=== PATIENT | male | born 1955 | race Caucasian/White ===

== ENCOUNTER 2021-01-25 16:20 | Observation (INO) | payer OTHER ==
--- NOTE | ~2021-01-25 | H ---
[address] [address] HISTORY AND PHYSICAL Name: LICO FOUNTAIN RUSSELL [place] Room: [address] [place] Rose#: [id number] Admission: 01/25/21 Attend Phys: [facility] Discharge: Date of : 57 Report #: [id number] THIS REPORT FOR: cc: FAM - No family physician/PCP FAM - No family physician/PCP [facility],Medical Records Staff ~ [facility]. For History and Physical, please refer to the acute admission. By: 03Medical Records Staff WIL /CINDY
--- NOTE | ~2021-01-25 | OP ---
[facility] [address] [place] [address] OPERATIVE REPORT Name: LICO FOUNTAIN RUSSELL [place] Room: [address] [place] Rose#: [id number] Admission: 01/25/21 Attend Phys: [facility] Discharge: 01/27/21 Date of : 57 Report #: [id number] THIS REPORT FOR: cc: FAM - No family physician/PCP FAM - No family physician/PCP [facility],Medical Records Staff ~ [facility]. By: 1338Medical Records Staff WIL /CINDY
[2021-01-25 17:57] LABS: BE -1.9 mmol/L (-2 to +3); PCO2 42.6 mmHg (35.0-45.0); PO2 90.6 mmHg (75.0-100.0); pH 7.359 (7.340-7.450)
[2021-01-25 18:33] LABS: ABSOLUTE LYMPHOCYTES 0.2 thou/uL (0.8-5.3); ABSOLUTE MONOCYTES 1.1 thou/uL (0.0-1.2); ABSOLUTE NEUTROPHILS 16.7 thou/uL (1.6-8.1); BASOPHILS 0.2 %; HEMATOCRIT 28.1 % (42.0-52.0); HEMOGLOBIN 9.1 gm/dL (14.0-18.0); LYMPHOCYTES 1.1 %; MCH 28.4 pg (26.0-34.0); MCHC 32.3 g/dL (28.0-37.0); MCV 87.9 fL (80.0-100.0); MONOCYTES 6.3 %; MPV 9.6 fl. (7.2-11.1); NUCLEATED RBCS 0 /100WBC; PLATELET COUNT* 142 thou/uL (150-400); POLYS 92.4 %; RBC 3.19 mil/uL (4.50-6.00); WBC 18.1 thou/uL (4.0-11.0)
[2021-01-25 18:43] LABS: CALCIUM 6.8 mg/dL (8.5-10.1); CREATININE 5.4 mg/dL (0.6-1.3); POTASSIUM 5.4 mmol/L (3.5-5.1)
[2021-01-25 18:54] LABS: FIBRINOGEN > 850 mg/dL (200-340)
[2021-01-25 18:59] LABS: MAGNESIUM 2.2 mg/dL (1.8-2.4)
[2021-01-25 19:43] LABS: ALBUMIN 1.3 g/dL (3.4-5.0); DIRECT BILIRUBIN 0.3 mg/dL (<0.1-0.3); TOTAL BILIRUBIN 0.7 mg/dL (<0.1-1.0); TOTAL PROTEIN 5.4 g/dL (6.4-8.2)
[2021-01-26 00:10] LABS: ABSOLUTE BASOPHILS 0.1 thou/uL (0.0-0.2); ABSOLUTE LYMPHOCYTES 0.2 thou/uL (0.8-5.3); ABSOLUTE MONOCYTES 0.6 thou/uL (0.0-1.2); ABSOLUTE NEUTROPHILS 16.2 thou/uL (1.6-8.1); BASOPHILS 0.3 %; HEMATOCRIT 27.6 % (42.0-52.0); HEMOGLOBIN 8.9 gm/dL (14.0-18.0); LYMPHOCYTES 1.3 %; MCH 28.3 pg (26.0-34.0); MCHC 32.2 g/dL (28.0-37.0); MCV 87.8 fL (80.0-100.0); MONOCYTES 3.4 %; MPV 9.5 fl. (7.2-11.1); NUCLEATED RBCS 0 /100WBC; PLATELET COUNT* 140 thou/uL (150-400); RBC 3.14 mil/uL (4.50-6.00); RDW-CV 14.8 % (10.5-14.5); WBC 17.1 thou/uL (4.0-11.0)
[2021-01-26 00:18] LABS: APTT 22.8 Seconds (25.0-31.3); INR 1.1; PROTIME 11.2 Seconds (9.20-11.50)
[2021-01-26 00:26] LABS: CALCIUM 6.6 mg/dL (8.5-10.1); CREATININE 6.2 mg/dL (0.6-1.3); POTASSIUM 5.8 mmol/L (3.5-5.1)
[2021-01-26 00:32] LABS: ALBUMIN 1.5 g/dL (3.4-5.0); DIRECT BILIRUBIN 0.4 mg/dL (<0.1-0.3); MAGNESIUM 2.6 mg/dL (1.8-2.4); PHOSPHORUS* 10.8 mg/dL (2.5-4.9); TOTAL BILIRUBIN 0.8 mg/dL (<0.1-1.0); TOTAL PROTEIN 5.5 g/dL (6.4-8.2)
[2021-01-26 00:54] LABS: BE -4.3 mmol/L (-2 to +3); PCO2 42.7 mmHg (35.0-45.0); PO2 92.2 mmHg (75.0-100.0); pH 7.321 (7.340-7.450)
[2021-01-26 06:26] LABS: ABSOLUTE BASOPHILS 0.1 thou/uL (0.0-0.2); ABSOLUTE LYMPHOCYTES 0.2 thou/uL (0.8-5.3); ABSOLUTE MONOCYTES 0.7 thou/uL (0.0-1.2); ABSOLUTE NEUTROPHILS 15.4 thou/uL (1.6-8.1); BASOPHILS 0.5 %; HEMATOCRIT 26.1 % (42.0-52.0); HEMOGLOBIN 8.5 gm/dL (14.0-18.0); LYMPHOCYTES 1.4 %; MCH 28.7 pg (26.0-34.0); MCHC 32.6 g/dL (28.0-37.0); MCV 88.1 fL (80.0-100.0); MONOCYTES 4.2 %; MPV 9.5 fl. (7.2-11.1); NUCLEATED RBCS 0 /100WBC; PLATELET COUNT* 141 thou/uL (150-400); POLYS 93.9 %; RBC 2.96 mil/uL (4.50-6.00); RDW-CV 14.7 % (10.5-14.5); WBC 16.4 thou/uL (4.0-11.0)
[2021-01-26 06:39] LABS: APTT 23.3 Seconds (25.0-31.3); INR 1.1; PROTIME 11.2 Seconds (9.20-11.50)
[2021-01-26 06:40] LABS: CALCIUM 6.9 mg/dL (8.5-10.1); MAGNESIUM 2.7 mg/dL (1.8-2.4)
[2021-01-26 06:45] LABS: POTASSIUM 6.1 mmol/L (3.5-5.1)
[2021-01-26 06:50] LABS: ALBUMIN 1.7 g/dL (3.4-5.0); DIRECT BILIRUBIN 0.3 mg/dL (<0.1-0.3); PHOSPHORUS* 12.4 mg/dL (2.5-4.9); TOTAL BILIRUBIN 0.7 mg/dL (<0.1-1.0); TOTAL PROTEIN 5.7 g/dL (6.4-8.2)
[2021-01-26 07:03] LABS: PCO2 44.1 mmHg (35.0-45.0)
[2021-01-26 07:05] LABS: pH 7.282 (7.340-7.450)
[2021-01-26 07:06] LABS: PO2 128.6 mmHg (75.0-100.0)
[2021-01-26 16:45] LABS: HEMATOCRIT 25.7 % (42.0-52.0); HEMOGLOBIN 8.4 gm/dL (14.0-18.0); MCH 28.7 pg (26.0-34.0); MCHC 32.6 g/dL (28.0-37.0); MCV 88.3 fL (80.0-100.0); MPV 9.7 fl. (7.2-11.1); RBC 2.91 mil/uL (4.50-6.00); RDW-CV 14.7 % (10.5-14.5); WBC 16.8 thou/uL (4.0-11.0)
[2021-01-26 16:57] LABS: APTT 22.8 Seconds (25.0-31.3); PROTIME 10.9 Seconds (9.20-11.50)
[2021-01-26 16:58] LABS: CALCIUM 7.9 mg/dL (8.5-10.1); CREATININE 7.4 mg/dL (0.6-1.3); POTASSIUM 5.3 mmol/L (3.5-5.1)
[2021-01-26 17:11] LABS: ALBUMIN 1.7 g/dL (3.4-5.0); CK-MB MASS 9.2 ng/mL (<0.5-3.6); DIRECT BILIRUBIN 0.3 mg/dL (<0.1-0.3); MAGNESIUM 3.1 mg/dL (1.8-2.4); PHOSPHORUS* 13.4 mg/dL (2.5-4.9); TOTAL BILIRUBIN 0.7 mg/dL (<0.1-1.0); TOTAL PROTEIN 5.6 g/dL (6.4-8.2)
[2021-01-26 17:41] LABS: BE -7.3 mmol/L (-2 to +3)
[2021-01-26 17:45] LABS: pH 7.277 (7.340-7.450)
[2021-01-26 17:46] LABS: PO2 133.6 mmHg (75.0-100.0)
[2021-01-26 20:40] LABS: HEMATOCRIT 25.3 % (42.0-52.0); HEMOGLOBIN 8.2 gm/dL (14.0-18.0); MCH 28.6 pg (26.0-34.0); MCHC 32.5 g/dL (28.0-37.0); MCV 87.9 fL (80.0-100.0); MPV 9.3 fl. (7.2-11.1); RBC 2.87 mil/uL (4.50-6.00); RDW-CV 14.8 % (10.5-14.5); WBC 19.9 thou/uL (4.0-11.0)
[2021-01-26 20:55] LABS: APTT 22.6 Seconds (25.0-31.3)
[2021-01-26 21:04] LABS: ALBUMIN 1.7 g/dL (3.4-5.0); CALCIUM 6.6 mg/dL (8.5-10.1); CK-MB MASS 8.1 ng/mL (<0.5-3.6); CREATININE 7.8 mg/dL (0.6-1.3); DIRECT BILIRUBIN 0.3 mg/dL (<0.1-0.3); MAGNESIUM 3.1 mg/dL (1.8-2.4); TOTAL BILIRUBIN 0.7 mg/dL (<0.1-1.0); TOTAL PROTEIN 5.7 g/dL (6.4-8.2)
[2021-01-26 21:11] LABS: POTASSIUM 6.5 mmol/L (3.5-5.1)
[2021-01-26 21:28] LABS: BE -6.5 mmol/L (-2 to +3); PCO2 45.7 mmHg (35.0-45.0)
[2021-01-26 21:49] LABS: PO2 134.3 mmHg (75.0-100.0); pH 7.264 (7.340-7.450)
--- NOTE | 2021-01-26 22:15 | NUR ---
ALL CRITICAL LABS REPORTED TO [facility]. SEE MAR.
--- NOTE | 2021-01-27 03:17 | NUR ---
0300 TO OR, [facility] PRESENT. NO BELONGINGS
[2021-01-27 04:06] LABS: GLYCOHEMOGLOBIN (HGB A1C) 7.7 % (4.8-5.6)
[2021-01-27 06:07] LABS: CK TOTAL (MAYO) 2066 U/L (41-331)
[2021-01-27 18:06] LABS: CK MACRO TYPE I 0 % (Not Observed); CK MACRO TYPE II 0 % (Not Observed); CPK BB (%) 0 % (0); CPK MM (%) 100 % (97-100)
[2021-01-28 13:08] LABS: CK TOTAL (MAYO) 1666 U/L (41-331)
--- NOTE | 2021-01-31 17:06 | PATH ---
[address] [address] PATHOLOGY RPT PROCEDURE Name: LICO TORIBIO RUSSELL GRANT Room: [address] Rose#: [id number] Admission: 01/25/21 Date of : 57 Discharge: 01/27/21 Report #: [id number] Path Case #: [id number] [facility] Accession Number: [id number] . 01 Material submitted: . liver - LIVER-FS . 01 Clinical history: . NEGATIVE FOR MALIGNANCY . 02 Frozen section diagnosis: . FROZEN SECTION DIAGNOSIS: Liver biopsy: - Less than 10% macrovesicular fatty changes. No presence of cellular infiltrates consistent with active inflammation. No presence of cirrhosis. No bridging fibrosis. No necrosis secondary to hypotension. Negative for malignancy. . The [facility] worksheet is filled out by Dr. Carlton Bernard and released directly to Halina Sevilla of [facility]. (FLORESITA:pit; 01/26/2021) . FROZEN SECTION GROSS DESCRIPTION: Received fresh at the bedside from the ultrasound-guided liver biopsy, accompanied by a label marked "Lico Toribio Russell Grant ([facility]) are three slivers of napoleon colored tissue each measuring approximately 2 cm long and averaging 0.1 cm thick. The specimen is entirely submitted for frozen studies and the remainder of that tissue frozen is submitted in cassette A1. (FLORESITA:pit; 01/26/2021) . Professional services performed by [facility] at [facility], [address] [place] [id number]. Technical services performed at [address] [place] [address], [address], [place] [address]. WSA/QTP . 02 Diagnosis: Liver biopsy: - Benign liver with approximately 5% macrovesicular steatosis and minimal increased stainable iron, without significant fibrosis or inflammation. See comment. (FLORESITA:pit; 01/27/2021) QTP 01/27/2021 1515 Local . 02 Comment: Properly controlled special stains performed on A1 show the following results supporting the diagnosis: PAS with and without diastase: No positive globules [facility] [address] [place] [address] PATHOLOGY RPT PROCEDURE Name: LICO TORIBIO RUSSELL [place]NN Room: M004-P [facility] [place] Rose#: [id number] Admission: 01/25/21 Date of : 57 Discharge: 01/27/21 Report #: [id number] Path Case #: [id number] Iron: Minimal hepatocellular increase/uptake Reticulin: Unremarkable hepatic plates Trichrome: No significant fibrosis. . Reviewed with Dr. Omar Calvillo on 01/31/2021 who agrees with the diagnosis. (FLORESITA:pit; 01/27/2021) . 02 Electronically signed: . Carlton Bernard MD, Pathologist NPI- [id number] . 01 Gross description: . SEE FROZEN SECTION FOR GROSS DESCRIPTION /QTP 01/26/2021 1627 Local . 02 Pathologist provided ICD-10: K76.0 . 02 CPT . 477921, 490863, 289159, 864774, 419220, [id number], [id number] Specimen Comment: A courtesy copy of this report has been sent to [phone], [phone] Specimen Comment: [id number] Specimen Comment: Report sent to / DR BERNARD Performed at: 01 [facility] [address], [place], [place] [id number] MD Dilip Chinchilla MD Phone: [phone] Performed at: 02 [facility] [address], [place], [place] [id number] MD Carlotn Bernard MD Phone: [phone]
[2021-01-31 21:05] LABS: CK MACRO TYPE I 0 % (Not Observed); CK MACRO TYPE II 0 % (Not Observed); CPK BB (%) 0 % (0); CPK MM (%) 100 % (97-100)
== END 2021-01-27 03:00 ==
LOC: M.ICU 16:20 → M.TBA 16:24 → M.ICU 01-27 03:00
DX: Z00.5 Encounter for examination of potential donor of organ and tissue (principal); Z20.822 Contact with and (suspected) exposure to COVID-19; Z79.899 Other long term (current) drug therapy